=== PATIENT | male | born 1955 | race Caucasian/White ===

== ENCOUNTER 2019-08-04 06:32 | Day surgery (SDC) | payer BC ==
[~2019-08-04 06:32] MED LIST: ASPIRIN EC81 MG PO; NO HOME MEDS; ULTRAM50 M1 PO
[2019-08-04 08:48] VITALS: BP 127/87
== END 2019-08-04 09:02 | disposition home or self-care (01) | DRG 951 ==
LOC: ENDO 06:32
PROVIDERS: ATTEND Surgery
PROC: 0DBN8ZX Excision of Sigmoid Colon, Via Natural or Artificial Opening Endoscopic, Diagnostic (ICD-10-PCS; principal; 2019-08-04)
DX: Z12.11 Encounter for screening for malignant neoplasm of colon (principal); D12.5 Benign neoplasm of sigmoid colon; K57.30 Diverticulosis of large intestine without perforation or abscess without bleeding; K64.8 Other hemorrhoids; Z80.9 Family history of malignant neoplasm, unspecified; Z11.59 Encounter for screening for other viral diseases